=== PATIENT | male | born 1975 | race Caucasian/White ===

== ENCOUNTER 2023-11-02 10:45 | Emergency (ER) | payer OTHER ==
[2023-11-02 11:02] VITALS: BMI 27.3
[2023-11-02] MEDS ORDERED: ACETAMINOPHEN 325 MG TABLET (FP) ONE (12:03)
[2023-11-02] MEDS ORDERED: LIDOCAINE 5% TOPICAL PATCH ONE (12:03)
[2023-11-02 12:05] LABS: URINE APPEARANCE CLEAR; URINE BILIRUBIN NEGATIVE (NEGATIVE); URINE COLOR YELLOW; URINE GLUCOSE (UA) NEGATIVE (NEGATIVE); URINE KETONE NEGATIVE (NEGATIVE); URINE LEUK ESTERASE NEGATIVE (NEGATIVE); URINE NITRITE NEGATIVE (NEGATIVE); URINE PROTEIN NEGATIVE (NEGATIVE); URINE UROBILINOGEN 0.2 mg/dL (0.2-1.0)
[2023-11-02] MEDS: LIDOCAINE 5% TOPICAL PATCH TP ONE (12:07)
[2023-11-02] MEDS: ACETAMINOPHEN 500 MG TABLET (FP) PO ONE (12:07)
[2023-11-02 13:17] LABS: BASO % 0.4 % (0-2.0); EOS % 0.8 % (0-4.5); HEMATOCRIT 45.4 % (35.4-49); HEMOGLOBIN 15.2 GM/dL (11.7-16.9); LYMPH % 30.4 % (8-40); MCH 30.5 pg (25.7-33.7); MCHC 33.5 g/dl (32.0-35.9); MEAN CELL VOLUME 91.1 fl (80-96); MEAN PLT VOLUME 7.5 fl (7.5-11.1); MONO % 6.6 % (3.8-10.2); NEUT % 61.8 % (42.8-82.8); PLATELET COUNT 254 10^3/uL (134-434); RBC 4.98 M/mm3 (4.00-5.60); RDW 12.9 % (11.9-15.9)
[2023-11-02 13:57] LABS: CALCIUM 9.3 mg/dL (8.5-10.1)
[2023-11-02 13:58] LABS: ALBUMIN 3.6 g/dl (3.4-5.0); BLOOD UREA NITROGEN 19.3 mg/dL (7-18); POTASSIUM 3.8 mmol/L (3.5-5.1)
[2023-11-02 14:02] LABS: BILIRUBIN,TOTAL 0.4 mg/dL (0.2-1); TOT PROT 7.1 g/dl (6.4-8.2)
[2023-11-02 14:23] VITALS: BP 125/83; PULSE 69; RESP 17; TEMP 98.3
[2023-11-02] MEDS ORDERED: LIDOCAINE PATCH REMOVAL MC SCH (22:00)
[2023-11-02 23:38] LABS: HIV INTERPRETATION NEGATIVE (NEGATIVE)
== END 2023-11-02 14:31 | disposition home or self-care (01) ==
LOC: JER 10:45
DX: R10.12 Left upper quadrant pain (principal); R35.0 Frequency of micturition; R53.83 Other fatigue; R42 Dizziness and giddiness; R35.89 Other polyuria
CPT/HCPCS: 36415; 80053; 81003; 83690; 85025; 86803; 87086; 87389; 99283-25